=== PATIENT | female | born 1970 | race Caucasian/White ===

== ENCOUNTER → 2022-10-22 11:41 | Outpatient (BNVA) | payer BC, SELFPAY | PROVIDERS: Visit Provider Emergency Medicine | DX: R50.9 Fever, unspecified (principal); J11.1 Influenza due to unidentified influenza virus with other respiratory manifestations | CPT/HCPCS: 87400 ==

== ENCOUNTER 2023-04-19 18:30 | Emergency (ER) | payer BC, SELFPAY ==
[2023-04-19 18:58] VITALS: BP 131/73; PULSE 76; RESP 16; O2SAT 100; BMI 26.1
--- NOTE | 2023-04-19 19:27 | XRR_ITS ---
PROCEDURE INFORMATION: Exam: XR Right Finger(s) Exam date and time: 04/19/2023 6:31 PM Age: 52 years old Clinical indication: Injury or trauma; Other: Bite by kitten; Index finger; Right; Additional info: Cat bite right index finger TECHNIQUE: Imaging protocol: Radiologic exam of the right fingers. Views: Minimum 2 views. COMPARISON: No relevant prior studies available. FINDINGS: Bones/joints: Normal. Soft tissues: Normal. XR/XR finger RT min 2V [id number] IMPRESSION: No acute findings.
--- NOTE | 2023-04-19 20:41 | W.ED.ANIMALB ---
HPI - Animal Bite General: Chief Complaint: Animal Bite Stated Complaint: Cat Bite Time Seen by Provider: 04/19/23 19:02 History of Present Illness: Patient reports that she was bitten by a kitten tonight just prior to arrival. She reports that there is a stray cat in her neighborhood that comes up and eats with her cats. She reports that the cat had kittens approximately 6 weeks ago and just brought the kittens up tonight for the first time. Patient was trying to get the kittens use to her so that she could take them all to get them spayed/neutered and one of the kittens bit onto her right index finger. She reports that the kitten ran off after doing so and actually was killed by the dog. The of the patient bagged up the kitten and put it in the refrigerator approximately an hour and a half after the kitten had . The patient does not recall her last tetanus vaccination does not think has been within 10 years Review of Systems Skin/Breast: Reports: other (Puncture wounds right index finger cat bite) Physical Exam Const: COMMON NORMALS: no acute distress, patient oriented x3 and alert Neuro: COMMON NORMALS: patient oriented x3 SENSORIUM/ORIENTATION: Yes alert Skin: NARRATIVE SKIN EXAM: Right index finger there are 3 puncture type wounds consistent with a cat bite. The wounds are clean. No bleeding. Patient has full range of motion of the finger. She reports that she irrigated the wounds extensively at her house. Course Vital Signs: Vital signs: Vital Signs Pulse Rate 76 04/19/23 18:58 Respiratory Rate 16 04/19/23 18:58 Blood Pressure 131/73 04/19/23 18:58 Pulse Oximetry 100 04/19/23 18:58 Oxygen Delivery Me thod Room Air 04/19/23 18:58 MDM - Animal Bite Medical Decision Making Cat bite Update tetanus vaccination tonight X-ray finger no acute findings Wounds are already cleaned. Spoke with [place] lead worker of housekeeping and laundry as the patient is in [place] a resident. Dr. Len Johnson who advised that this is a low level exposure. Since the cat is and has been refrigerated within 24 hours of they can drop the cat off at the local health department tomorrow to be shipped to [facility] for testing. She felt like the patient did not need to have rabies postexposure vaccination tonight. She felt like we could wait until mid next week when we receive the results of the testing on the cat. Patient is agreeable with this plan. Patient information is given to the lead worker of housekeeping and laundry for continued follow-up. Geotechnical Field Technician does not need me to complete any other forms or paperwork at this time. Start patient on Augmentin antibiotic prophylaxis. Continue follow-up with the [facility] department in [place]. Follow-up with your primary care provider as needed. Return to ER for new or worsening symptoms Lab Data Radiology Impressions Finger X-Ray 04/19/23 19:27 IMPRESSION: No acute findings. Discharge Plan Discharge Patient Disposition: Home Clinical Impression: Cat bite Condition: Stable Prescriptions: New amoxicillin-pot clavulanate 875-125 mg tablet 1 tab PO BID 10 Days Qty: 20 0RF No Action oseltamivir [Tamiflu] 75 mg capsule 75 mg PO Q12H 5 Days Qty: 10 0RF escitalopram oxalate 20 mg tablet 20 mg PO QDAY Qty: 30 1RF Discharge Orders: Discharge ED (Routine); Ordered 04/19/23 Ordered By: Jennie Chairez Referrals: Leesa Gamino APN [Primary Care Provider] - Discharge Diet: Usual diet Discharge Activity: Resume usual activity Patient Instructions: Animal Bite (ED) Activity Restrictions/Additional Instructions: Continue follow-up with the [facility] department in [place]. The lead worker of housekeeping and laundry,Len Johnson is who we spoke with [facility]. Send the cat offer testing as discussed with the lead worker of housekeeping and laundry. Take the antibiotics as prescribed starting tomorrow. Your first dose was given in ER tonight. We did update your tetanus vaccination. Keep the wound clean and dry. Follow-up with your primary care provider as needed. Return to the ER for new or worsening symptoms Coding Level of Care Code ED Banquet Chef for Suzan Stephens
[2023-04-19] MEDS: amoxicillin-clav 875-125 mg Tablet 1 TAB PO (21:09)
[2023-04-19] MEDS: tetanus-dipt-pertussis 0.5 mL SDV IM (21:09)
== END 2023-04-19 21:12 | disposition home or self-care (01) ==
PROVIDERS: Emergency Provider Nurse Practitioner Family; PCP Nurse Practitioner Family
DX: S61.230A Puncture wound without foreign body of right index finger without damage to nail, initial encounter (principal); W55.01XA Bitten by cat, initial encounter; Y93.K9 Activity, other involving animal care; Y92.009 Unspecified place in unspecified non-institutional (private) residence as the place of occurrence of the external cause; Z23 Encounter for immunization
CPT/HCPCS: 73140; 90471; 90715; 99283